=== PATIENT | male | born 1955 | race African-American/Black ===

== ENCOUNTER 2017-05-11 04:14 | Inpatient (IN) | payer MEDICAID ==
[~2017-05-11] VITALS: Ht 165.1 cm; Wt 54.9 kg
[2017-05-11] MEDS ORDERED: HYDROMORPHONE INJ 2 MG/ML DISP.SYRIN IV ONE (04:30)
[2017-05-11] MEDS ORDERED: ONDANSETRON HCL/PF 4 MG/2 ML VIAL IVP ONE (04:30)
[2017-05-11] MEDS ORDERED: IV NS 0.9% 1,000 ML BAG IV ONE (04:30)
--- NOTE | 2017-05-11 04:30 | NUR ---
PT BIB FRIEND, PT C/O ABDOMINAL PAIN X 1 DAY WITH N/V. PT STATES ABD PAIN 7/10 NOT RADIATING. PT AAOX4. RESP EVEN AND UNLABORED. SKIN WNL AND WARM TO TOUCH. NO S/S OF ACUTE DISTRESS NOTED. VSS. PT PLACED ON MONITOR AND POX. PT SAFETY AND COMFORT MEASURES IN PLACE. MD BEDSIDE FOR EVAL. CALL LIGHT WITHIN REACH OF PT. BED SET IN LOWEST POSITION.
--- NOTE | 2017-05-11 04:57 | NUR ---
PT TO CT
[2017-05-11] MEDS ORDERED: HYDROMORPHONE INJ 0.5 MG/0.5 ML SYRINGE ONE (05:00)
[2017-05-11] MEDS ORDERED: ONDANSETRON HCL/PF 4 MG/2 ML VIAL ONE (05:00)
--- NOTE | 2017-05-11 05:09 | NUR ---
PT BACK FROM CT
--- NOTE | 2017-05-11 05:10 | NUR ---
RADIOLOGY BEDSIDE FOR X-RAY
[2017-05-11 05:27] LABS: EOSINOPHILS # (AUTO) 0.1 /CMM (0.0-0.7); EOSINOPHILS % (AUTO) 1.2 % (0.0-6.0); HEMATOCRIT 39 % (39-51); HEMOGLOBIN 12.8 g/dL (13.5-17.5); LYMPHOCYTES # (AUTO) 1.1 /CMM (0.8-4.8); LYMPHOCYTES % (AUTO) 13.7 % (20.0-44.0); MEAN CORPUSCULAR HEMOGLOBIN 26 PG (26.0-33.0); MEAN CORPUSCULAR HGB CONC 33 g/dl (31.0-36.0); MEAN CORPUSCULAR VOLUME 78 fL (80-96); MONOCYTES # (AUTO) 0.1 /CMM (0.1-1.30); MONOCYTES % (AUTO) 0.9 % (2.0-12.0); NEUTROPHILS # (AUTO) 6.9 /CMM (1.8-8.9); NEUTROPHILS % (AUTO) 84.2 % (43.0-81.0); PLATELET COUNT (AUTO) 321 /CMM (150-450); RDW COEFFICIENT OF VARIATION 14.4 (11.5-15.0); RED BLOOD CELL COUNT(AUTO) 4.93 MIL/uL (4.5-6.0); WHITE BLOOD COUNT (AUTO) 8.2 K/uL (4.3-11.0)
[2017-05-11 05:40] LABS: POTASSIUM 4.2 mmol/L (3.5-5.1)
[2017-05-11 05:43] LABS: INR 0.96 (0.87-1.13)
[2017-05-11 05:46] LABS: ALBUMIN 4.4 g/dL (3.4-5.0); BILIRUBIN,DIRECT 0.1 mg/dL (0.0-0.2); BILIRUBIN,TOTAL 0.5 mg/dL (0.2-1.0); TOTAL PROTEIN, SERUM 8.6 g/dL (6.4-8.2)
--- NOTE | 2017-05-11 05:57 | NUR ---
PER MD, NG TUBE INSERTED AND SET TO INTERMITTENT SUCTION
[2017-05-11] MEDS ORDERED: LORAZEPAM INJ 2 MG/ML VIAL IV ONE (06:00)
[2017-05-11] MEDS ORDERED: PIPERACILLIN /TAZOBACTAM 3.375 G in IV D5W 50 ML IV ONE (06:00)
[2017-05-11] MEDS ORDERED: PIPERACILLIN /TAZOBACTAM 3.375 G VIAL IV ONE (06:02)
[2017-05-11] MEDS ORDERED: LORAZEPAM INJ 2 MG/ML VIAL ONE (06:03)
--- NOTE | 2017-05-11 06:24 | NUR ---
REPORT GIVEN TO [facility] NURSE FOR MARTA
--- NOTE | 2017-05-11 06:38 | NUR ---
MS2/RN RECEIVE PATIENT FROM [facility]. PATIENT IS AWAKE, ALERT, ORIENTED, NO C/O PAIN, NO DISTRESS NOTED, NGT TO LOW INTERMITTENT SUCTION WAS SET UP, MADE COMFORTABLE IN BED PLACED CALL LIGHT IN REACH. WILL ENDORSE TO NEXT RN FOR CONTINUITY OF CARE/ADMISSION.
[2017-05-11 07:05] VITALS: BP 122/63
--- NOTE | 2017-05-11 07:30 | NUR ---
RN MS NOTES PT IN BED, ASLEEP, EASY TO AROUSE, NO COMPLAINT OF PAIN AT THIS TIME, RESPIRATIONS NORMAL AND NOT LABORED, IV FLUIDS INFUSING WELL, NG TUBE IN PLACE, ON LOW INTERMITTENT SUCTION, WITH VERY MINIMAL DRAIN OF LIGHT PINK NOTED, CALL LIGHT WITHIN REACH, KEPT WARM AND COMFORTABLE.
[2017-05-11 08:00] VITALS: BP 126/70
--- NOTE | 2017-05-11 08:00 | NUR ---
RN MS NOTES SENT A MESSAGE FOR DR. NUÑEZ FOR ADMITTING ORDERS, AWAITING ORDERS.
[2017-05-11] MEDS ORDERED: ONDANSETRON HCL/PF 4 MG/2 ML VIAL IVP PRN (08:30)
[2017-05-11] MEDS ORDERED: MORPHINE SULFATE INJ 2 MG/ML DISP.SYRIN IV PRN (08:30)
[2017-05-11] MEDS ORDERED: HYDROMORPHONE INJ 0.5 MG/0.5 ML SYRINGE IV PRN (09:00)
[2017-05-11] MEDS: PANTOPRAZOLE 40 MG VIAL IV SCH (09:09)
[2017-05-11] MEDS: IV NS 0.9% 1,000 ML IV PRN ×2 (09:14→21:12)
[2017-05-11] MEDS ORDERED: MINERAL OIL 133 ML (PYXIS) 1 EA ENEMA RC ONE (11:00)
--- NOTE | 2017-05-11 13:00 | NUR ---
RN MS NOTES PT IN BED, RESTING, NO COMPLAINT OF PAIN, NOT IN DISTRESS, PT KEPT ON NPO, PT INFORMED, IV FLUIDS INFUSING WELL, CALL LIGHT WITHIN REACH, NEEDS ATTENDED.
[2017-05-11 16:00] VITALS: BP 137/83
--- NOTE | 2017-05-11 18:04 | NUR ---
RN MS NOTES PT IN BED, ASLEEP, EASY TO AROUSE, ALERT AND VERBALLY RESPONSIVE, SEEN BY DELLA PUTTY MIXER, PLAN OF CARE DISCUSSED WITH PT, VERBALIZED UNDERSTANDING, PT ABLE TO USE URINAL, CALL LIGHT PLACED WITHIN REACH, AWAITING GI CONSULT.
--- NOTE | 2017-05-11 19:00 | NUR ---
RN NOTES RECEIVE PT IN BED, A/O X 4, STABLE, NO S/S OF DISTRESS, PATIENT KEPT COMFORTABLE AT THIS TIME, SAFETY MEASURES IN PLACE, CALL LIGHT WITHIN REACH, WILL CONTINUE TO MONITOR.
[2017-05-11] MEDS ORDERED: IV NS 0.9% 1,000 ML BAG IV PRN (19:30)
[2017-05-11 20:00] VITALS: BP 124/71
[2017-05-11 21:49] VITALS: BP 124/71
--- NOTE | 2017-05-11 23:00 | NUR ---
MS RN NOTES dr. castillo visited the pt tonight, per dr. castillo clamp ngt and check tomorrow at 0800 NGT residual low less than 100 cc - pls order small bowel follow through noted and carried out
[2017-05-12 06:12] LABS: BASOPHILS % (AUTO) 0.3 % (0.0-2.0); EOSINOPHILS # (AUTO) 0.1 /CMM (0.0-0.7); HEMATOCRIT 33 % (39-51); HEMOGLOBIN 11.2 g/dL (13.5-17.5); LYMPHOCYTES # (AUTO) 1.3 /CMM (0.8-4.8); LYMPHOCYTES % (AUTO) 14.4 % (20.0-44.0); MEAN CORPUSCULAR HEMOGLOBIN 27 PG (26.0-33.0); MEAN CORPUSCULAR HGB CONC 34 g/dl (31.0-36.0); MEAN CORPUSCULAR VOLUME 78 fL (80-96); MONOCYTES # (AUTO) 0.5 /CMM (0.1-1.30); MONOCYTES % (AUTO) 5.9 % (2.0-12.0); NEUTROPHILS % (AUTO) 78.4 % (43.0-81.0); PLATELET COUNT (AUTO) 301 /CMM (150-450); RDW COEFFICIENT OF VARIATION 14.3 (11.5-15.0); RED BLOOD CELL COUNT(AUTO) 4.22 MIL/uL (4.5-6.0); WHITE BLOOD COUNT (AUTO) 8.9 K/uL (4.3-11.0)
[2017-05-12 06:31] LABS: CALCIUM, SERUM 8.9 mg/dL (8.5-10.1); CREATININE 0.8 mg/dL (0.6-1.3); MAGNESIUM 1.7 mg/dL (1.8-2.4); PHOSPHORUS 4.1 mg/dL (2.5-4.9); POTASSIUM 3.8 mmol/L (3.5-5.1)
[2017-05-12 06:36] LABS: THYROID STIMULATING HORMONE 0.24 uIU/mL (0.358-3.74)
--- NOTE | 2017-05-12 06:43 | NUR ---
MS RN CLOSING NOTES PATIENT IN BED ASLEEP AND EASILY AWAKEN, HEAD OF BED ELEVATED FOR BETTER LUNG EXPANSION AND GOOD CIRCULATION. STABLE, NOT IN DISTRESS. TOLERATING ROOM AIR 99% NO SOB, KEPT CLEAN AND DRY AND COMFORTABLE. NEEDS ATTENDED AND ANTICIPATED. NURSING CARE RENDERED, NGT INTACT AND PATENT PER DR. ARLEN QUAN NGT. NO BM YET, NO C/O OF PAIN AT THIS MOMENT. ON LOW BED TO ENSURE SAFETY, CALL LIGHT WITHIN REACH, WILL ENDORSE TO THE NEXT SHIFT CONTINUE PLAN OF CARE.
--- NOTE | 2017-05-12 07:20 | NUR ---
RN NOTES PATIENT A/OX4, BREATHING EVEN AND UNLABORED, NGT CLAMPED, PATIENT KEPT NPO AT THIS TIME. NEEDS ATTENDED AND MET, CALL LIGHT WITHIN REACH, WILL CONTINUE TO MONITOR.
[2017-05-12 08:00] VITALS: BP 111/63
--- NOTE | 2017-05-12 08:10 | NUR ---
RN NOTES RESIDUAL CHECKED 0CC, ORDERED SMALL BOWEL FOLLOW THROUGH PER DR. MCKINLEY'S ORDER. ORDER NOTED AND CARRIED OUT.
[2017-05-12] MEDS: PANTOPRAZOLE 40 MG VIAL IV SCH (09:45)
[2017-05-12] MEDS ORDERED: DIATR MEGLU/DIATRIZOATE SODIUM 120 ML BOTTLE (GASTROGRAPHIN) ONE (10:11)
[2017-05-12] MEDS: Magnesium 1GM/D5W 100ML PREMIX 100 ML IV SCH ×2 (12:13→13:18)
--- NOTE | 2017-05-12 15:33 | NUR ---
RN NOTES PATIENT'S SMALL BOWEL X-RAY RESULT RELAYED TO DELLA COTTER, PER PRESIDENT [employer]LE[employer] OR [employer]IV[employer] GIVE PATIENT CLEAR LIQUID DIET. ORDER NOTED AND CARRIED OUT.
[2017-05-12 16:00] VITALS: BP 114/62
[2017-05-12] MEDS ORDERED: LACTULOSE 10 G/15 ML UDC (PYXIS) PO ONE (16:30)
[2017-05-12] MEDS: METOCLOPRAMIDE HCL 10 MG/2 ML VIAL IV SCH ×2 (17:31→23:24)
--- NOTE | 2017-05-12 18:29 | NUR ---
RN NOTES PATIENT A/OX4, BREATHING EVEN AND UNLABORED, NO SOB NOTED, PATIENTS NGT CLAMPED. PT DENIES NAUSEA, VOMITING OR ABDOMINAL PAIN. PT TOLERATING CLEAR LIQUID DIET. PT HAD 1 LARGE BM. NEEDS ATTENDED AND MET, CALL LIGHT WITHIN REACH, WILL ENDORSE TO [facility] FOR MARTA.
--- NOTE | 2017-05-12 19:30 | NUR ---
DR ARLEN GAVIN VISITED THE PT SPOKE TO HIM PER DR MCKINLEY REMOVED HIS NGT NOTED AND CARRIED OUT REMOVED NGT TUBE PT TOLERATED PROCEDURE WELL
[2017-05-12 20:00] VITALS: BP 118/69
[2017-05-13] MEDS: METOCLOPRAMIDE HCL 10 MG/2 ML VIAL IV SCH ×3 (04:16→16:10)
--- NOTE | 2017-05-13 06:25 | NUR ---
MS RN CLOSING NOTES PATIENT IN BED COMFORTABLY ASLEEP AND EASILY AWAKEN, NO C/O OF PAIN AT THIS MOMENT.IN STABLE CONDITION NOT IN FORM OF DISTRESS. NO SOB, TOLERATING ROOM AIR 99% NEEDS ATTENDED AND ANTICIPATED. NURSING CARE RENDERED, KEPT CLEAN AND DRY AND COMFORTABLE. ON LOW BED TO ENSURE SAFETY, CALL LIGHT WITHIN REACH, WILL ENDORSE TO THE NEXT SHIFT CONTINUE PLAN OF CARE.
[2017-05-13 06:48] LABS: EOSINOPHILS % (AUTO) 0.4 % (0.0-6.0); HEMATOCRIT 35 % (39-51); HEMOGLOBIN 11.9 g/dL (13.5-17.5); LYMPHOCYTES # (AUTO) 1.3 /CMM (0.8-4.8); LYMPHOCYTES % (AUTO) 17.1 % (20.0-44.0); MEAN CORPUSCULAR HEMOGLOBIN 27 PG (26.0-33.0); MEAN CORPUSCULAR HGB CONC 34 g/dl (31.0-36.0); MEAN CORPUSCULAR VOLUME 79 fL (80-96); MONOCYTES # (AUTO) 0.5 /CMM (0.1-1.30); MONOCYTES % (AUTO) 6.2 % (2.0-12.0); NEUTROPHILS % (AUTO) 76.3 % (43.0-81.0); PLATELET COUNT (AUTO) 292 /CMM (150-450); RDW COEFFICIENT OF VARIATION 13.9 (11.5-15.0); RED BLOOD CELL COUNT(AUTO) 4.46 MIL/uL (4.5-6.0); WHITE BLOOD COUNT (AUTO) 7.9 K/uL (4.3-11.0)
[2017-05-13 06:52] LABS: CALCIUM, SERUM 8.8 mg/dL (8.5-10.1); MAGNESIUM 1.9 mg/dL (1.8-2.4)
--- NOTE | 2017-05-13 07:33 | NUR ---
MS RN OPENING NOTES PATIENT RECEIVED ASLEEP IN BED, EASILY AWAKENS. HOB ELEVATED. A/O X 4. VERBALLY RESPONSIVE, DENIES PAIN OR DISCOMFORTS AT THIS TIME. ON ROOM AIR, BREATHING EVEN AND UNLABORED. IV ACCESS ON RAC INTACT AND PATENT, EASILY TO FLUSH. BED IN LOW/LOCKED POSITION WITH SIDE-RAILS UP X2. CALL LIGHT WITHIN EASY REACH. WILL CONTINUE TO MONITOR PT ACCORDINGLY.
[2017-05-13 08:00] VITALS: BP 116/72
[2017-05-13] MEDS: PANTOPRAZOLE 40 MG VIAL IV SCH (08:50)
[2017-05-13] MEDS ORDERED: METO-295 PO (11:54)
[2017-05-13 16:00] VITALS: BP 140/53
--- NOTE | 2017-05-13 19:15 | NUR ---
RN DISCHARGED NOTES PATIENT DISCHARGED HOME IN STABLE CONDITION. A/O X4, SAME VERBALLY RESPONSIVE WITH NO COMPLAINTS VOICED DURING DISCHARGE. PT ABLE TOLERATED DIET/FOOD TODAY WITH NO C/O PAIN, N & V. ALL NEEDS AND CARE ATTENDED WELL. V/S TAKEN AND RECORDED. SKIN IS INTACT. IV ACCESS REMOVED AND PUT PRESSURE GAUZE, NO BLEEDING NOTED. BELONGINGS CHECKED, COUNTED AND SIGNED FORM. HEALTH TEACHINGS GIVEN AND VERBALIZED UNDERSTANDING. PT LEFT UNIT AMBULATORY ACCOMPANIED BY FRIEND MARY AT 1910H. LAUNDRY PRICING CLERK MADE AWARE OF DISCHARGED.
== END 2017-05-13 19:10 | disposition home or self-care (01) | DRG 247 ==
LOC: ER 04:15 → MEDSG2 06:18
DX: K56.609 Unspecified intestinal obstruction, unspecified as to partial versus complete obstruction (principal); E83.52 Hypercalcemia; K44.9 Diaphragmatic hernia without obstruction or gangrene; K56.7 Ileus, unspecified; S31.109S Unspecified open wound of abdominal wall, unspecified quadrant without penetration into peritoneal cavity, sequela; X58.XXXS Exposure to other specified factors, sequela; W34.00XS Accidental discharge from unspecified firearms or gun, sequela; K59.00 Constipation, unspecified
CPT/HCPCS: 36415; 71045-TC; 74250-TC; 80048-TC; 80061-TC; 80076-TC; 83690-TC; 83735-TC; 84100-TC; 84443-TC; 84484-TC; 85025-TC; 85730-TC; 87081-TC; A4606; C9113; J2060; J2405; J2543; J2765; J3475; J7030; J7060; Q9963; Z7610